=== PATIENT | female | born 1945 | race Caucasian/White ===

== ENCOUNTER 2020-03-02 00:36 | Observation (INO) ==
[2020-03-02] MEDS ORDERED: Acetaminophen 325 MG TABLET PO PRN (00:42)
[2020-03-02] MEDS ORDERED: Ondansetron 4 MG/2 ML VIAL IVP PRN (00:42)
[2020-03-02] MEDS ORDERED: Naloxone 0.4 MG/ML INJ IVP PRN (00:42)
[2020-03-02] MEDS ORDERED: Ipratropium/Albuterol Neb 3 ML IH PRN (01:22)
[2020-03-02] MEDS: Ipratropium/Albuterol Neb 3 ML IH SCH ×5 (04:51→20:33)
[2020-03-02] MEDS: *HR* Enoxaparin 40 MG/0.4 ML SYRINGE SQ SCH (05:33)
[2020-03-02 05:42] LABS: Basophils % 0.6 %; Eosinophils % 0.1 %; Hematocrit 35.8 % (35.3-44.9); Hemoglobin 11.5 g/dL (11.5-15.4); Immature Granulocytes % 0.7 % (0-4); Lymphocytes # 0.5 K/mcL (0.6-4.6); Lymphocytes % 6.9 %; Mean Corpuscular HGB Conc 32.1 g/dL (31.6-35.5); Mean Corpuscular Volume 105.9 fL (83.0-100.0); Mean Platelet Volume 9.5 fL (9.4-12.4); Monocytes # 0.2 K/mcL (0.0-1.3); Monocytes % 2.4 %; Neutrophils # 6.3 K/mcL (1.6-8.9); Nucleated Red Blood Cells 0.6 /100 WBC (0); Platelet Count 267 K/mcL (140-400); Red Blood Count 3.38 M/mcL (3.82-4.97); Red Cell Distribution Width 13.6 % (11.5-14.5); Segmented Neutrophils % 89.3 %; White Blood Count 7.1 K/mcL (4.3-11.1)
[2020-03-02 06:02] LABS: Prothrombin Time 11.1 Seconds (9.4-12.1)
[2020-03-02 06:05] LABS: Calcium 9.2 mg/dL (8.6-10.3); Magnesium 1.9 mg/dL (1.6-2.6); Potassium 3.9 mEq/L (3.5-5.1)
[2020-03-02] MEDS: MethylPREDNISolone 40 MG/ML VIAL IVP SCH ×3 (07:37→23:32)
[2020-03-02] MEDS ORDERED: *HR* LORazepam 2 MG/ML VIAL ONE (09:38)
[2020-03-02] MEDS ORDERED: *HR* LORazepam 2 MG/ML VIAL IVP ONE (09:38)
[2020-03-02] MEDS ORDERED: *HR* OxyCODONE/APAP 5/325 TABLET PO PRN (09:54)
[2020-03-02] MEDS ORDERED: 0.9 % Sodium Chloride 1,000 ML IVC SCH (10:00)
[2020-03-02] MEDS: Gabapentin 300 MG CAPSULE PO SCH ×2 (10:38→20:09)
[2020-03-02] MEDS: Sennosides/Docusate Sodium TABLET PO SCH ×2 (10:39→20:09)
[2020-03-02] MEDS: *HR* Methadone 10 MG TABLET PO SCH ×2 (10:39→20:09)
[2020-03-02] MEDS: *HR* LORazepam 0.5 MG TABLET PO PRN (16:00)
[2020-03-02] MEDS: Budesonide/Formoterol 160/4.5 1 PUFF INH IH SCH (20:37)
[2020-03-02] MEDS ORDERED: Mirtazapine 15 MG TABLET PO SCH (21:00)
[2020-03-02] MEDS ORDERED: Gabapentin 400 MG CAPSULE PO SCH (21:00)
[2020-03-03] MEDS: Ipratropium/Albuterol Neb 3 ML IH SCH ×4 (00:46→11:48)
[2020-03-03] MEDS: *HR* Enoxaparin 40 MG/0.4 ML SYRINGE SQ SCH (04:52)
[2020-03-03 07:09] VITALS: BP 120/64
[2020-03-03] MEDS: *HR* Methadone 10 MG TABLET PO SCH (07:48)
[2020-03-03] MEDS: Gabapentin 300 MG CAPSULE PO SCH (07:48)
[2020-03-03] MEDS: *HR* LORazepam 0.5 MG TABLET PO PRN (07:48)
[2020-03-03] MEDS: Sennosides/Docusate Sodium TABLET PO SCH (07:48)
[2020-03-03] MEDS: MethylPREDNISolone 40 MG/ML VIAL IVP SCH (07:50)
[2020-03-03 08:38] LABS: Basophils % 0.1 %; Hematocrit 35.5 % (35.3-44.9); Hemoglobin 11.3 g/dL (11.5-15.4); Immature Granulocytes % 1.1 % (0-4); Lymphocytes # 0.9 K/mcL (0.6-4.6); Mean Corpuscular HGB Conc 31.8 g/dL (31.6-35.5); Mean Corpuscular Hemoglobin 33.2 pg (28.0-33.3); Mean Corpuscular Volume 104.4 fL (83.0-100.0); Mean Platelet Volume 9.5 fL (9.4-12.4); Monocytes # 1.2 K/mcL (0.0-1.3); Monocytes % 6.3 %; Neutrophils # 16.5 K/mcL (1.6-8.9); Nucleated Red Blood Cells 0.2 /100 WBC (0); Platelet Count 297 K/mcL (140-400); Red Cell Distribution Width 13.7 % (11.5-14.5); Segmented Neutrophils % 87.5 %; White Blood Count 18.8 K/mcL (4.3-11.1)
[2020-03-03 09:14] LABS: Potassium 4.3 mEq/L (3.5-5.1)
[2020-03-03] MEDS: Budesonide/Formoterol 160/4.5 1 PUFF INH IH SCH (10:53)
[2020-03-03] MEDS ORDERED: FLU Vac QV 20-21 (6Month+)/PF 0.5 ML SYRINGE IM ONE (14:17)
== END 2020-03-03 14:47 | disposition hospice, home (50) ==
LOC: INPPIK
PROVIDERS: ADMIT Family Medicine; ATTEND Family Medicine